=== PATIENT | male | born 1980 ===

== ENCOUNTER 2025-04-01 08:49 | Emergency (ER) | payer OTHER ==
[~2025-04-01] VITALS: Ht 177.8 cm; Wt 77.1 kg
[2025-04-01] MEDS ORDERED: ONDANSETRON HCL 4 MG in 0.9 % SODIUM CHLORIDE 50 ML IV ONE (10:15)
[2025-04-01] MEDS ORDERED: FAMOtidine 10 MG/ML (4ML VIAL) IV PUSH ONE (10:15)
[2025-04-01] MEDS ORDERED: 0.9 % SODIUM CHLORIDE 1,000 ML IV SCH (10:15)
[2025-04-01 11:45] LABS: BASO % 0.1 % (0.1-1.2); EOS # 0.06 (0.04-0.54); EOS % 0.3 % (0.7-7.0); LYMPH # 1.37 (1.18-3.74); LYMPH % 6.3 % (19.3-53.1); MEAN PLATELET VOLUME 9.80 fl (9.4-12.4); MONO # 1.05 (0.24-0.82); MONO % 4.9 % (4.7-12.5); NEUT # 19.03 (1.56-6.13); NEUT % 88.0 % (34.0-71.1); RED CELL DISTRIBUTION WIDTH 11.8 % (11.6-14.4)
[2025-04-01 11:54] LABS: URINE APPEARANCE Clear; URINE BILIRRUBIN Negative (NEGATIVE); URINE BLOOD Negative; URINE COLOR Yellow; URINE KETONE Negative (NEGATIVE); URINE LEUKOCYTE Negative; URINE NITRATE Negative; URINE PROTEIN Trace (NEGATIVE); URINE UROBILINOGEN 0.2 E.U./dl
[2025-04-01 11:57] LABS: URINE BACTERIA 59.9 uL (0.0-1933); URINE EPITHELIAL CELLS 15.6 uL (0.0-38.8); URINE WBC 19.3 uL (0.0-23.2)
[2025-04-01] MEDS ORDERED: 0.9 % SODIUM CHLORIDE 1,000 ML IV ONE (12:00)
[2025-04-01 12:04] LABS: URINE CAST 1.02 uL (0.0-1.40); URINE GLUCOSE 100 MG/DL (NEGATIVE); URINE RBC 1.6 uL (0.0-20.8)
[2025-04-01 12:12] LABS: ALT/SGPT 26.0 U/L (12-78); AST/SGOT 13.0 U/L (15-37); BILIRUBIN TOTAL 0.5 mg/dL (0.3-1.2); BUN CREA RATIO 15.0 (7.0-25.0); CREATININE SERUM 0.86 mg/dL (0.70-1.30); GFR 96.6; GLOBULINA 3.4 G/DL (2.4-3.5); GLUCOSE FASTING 116.0 mg/dL (65-100); OSMOLALITY SERUM 282.0 MOSM/KG (275-295); PHOSPHOKINASE CREATININE 66.0 U/L (39-308)
[2025-04-01 12:16] LABS: INR 1.04
[2025-04-01 16:10] LABS: BASO % 0.1 % (0.1-1.2); EOS # 0.03 (0.04-0.54); EOS % 0.2 % (0.7-7.0); LYMPH # 1.65 (1.18-3.74); LYMPH % 12.8 % (19.3-53.1); MEAN PLATELET VOLUME 9.40 fl (9.4-12.4); MONO # 0.64 (0.24-0.82); MONO % 5.0 % (4.7-12.5); NEUT # 10.52 (1.56-6.13); NEUT % 81.6 % (34.0-71.1); RED CELL DISTRIBUTION WIDTH 11.9 % (11.6-14.4)
[2025-04-01] MEDS ORDERED: ZOFRAN8 MG PO (16:40)
[2025-04-01] MEDS ORDERED: ANTIVERT25 M2 PO (16:40)
== END 2025-04-01 17:47 | disposition home or self-care (01) ==
LOC: ER 08:49
PROVIDERS: General Practice
DX: F19.929 Other psychoactive substance use, unspecified with intoxication, unspecified (principal); Y92.89 Other specified places as the place of occurrence of the external cause